=== PATIENT | female | born 1990 | race Two or more races ===

== ENCOUNTER 2017-01-13 11:02 | Emergency (ER) | payer BC, OTHER ==
[2017-01-13 11:31] VITALS: BP 115/52
--- NOTE | 2017-01-13 12:36 | UC ---
UC General HPI - HPI Summary HPI Summary: FIVE DAYS OF DIARRHEA, ABDOMINAL CRAMPING AND LOW GRADE FEVER. HAD VOMITING EPISODES ON FIRST DAY OF ILLNESS, WHICH RESOLVED. BUT DIARRHEA WILL NOT GO AWAY. WAS WATERY STOOL, NOW JUST LOOSE STOOL. - History of Current Complaint Chief Complaint: UCGI Stated Complaint: DIARRHEA Time Seen by Provider: 01/13/17 11:57 Hx Obtained From: Patient Onset/Duration: Gradual Onset, Lasting Days, Still Present Timing: Intermittent Episodes Lasting: Onset Severity: Moderate Current Severity: Mild Pain Intensity: 2 Associated Signs & Symptoms: Positive: Diarrhea, Fever - MILD, Nausea - RESOLVED , Vomiting - RESOLVED. Negative: Abdominal Pain, Back Pain, Chest Pain, Dizziness, Headache, Immunocompromised, Melena, SOB, Weakness - Allergy/Home Medications Allergies/Adverse Reactions: Allergies Allergy/AdvReac Type Severity Reaction Status Date / Time No Known Allergies Allergy Verified 01/13/17 11:25 Home Medications: Home Medications Multiple Vitamins W/ Minerals [Airborne] 01/13/17 [History] PMH/Surg Hx/FS Hx/Imm Hx Previously Healthy: Yes Endocrine History Of: Denies: Diabetes, Thyroid Disease Cardiovascular History Of: Denies: Cardiac Disorders, Hypertension Respiratory History Of: Denies: COPD, Asthma GI/ History Of: Denies: Ulcer - Surgical History Surgical History: None - Family History Known Family History: Positive: Other - BOYFRIEND ALSO HAS DIARRHEA - Social History Occupation: Employed Full-time, Student Lives: With Family Alcohol Use: Weekly Substance Use Type: None Smoking Status (MU): Never Smoked Tobacco Review of Systems Constitutional: Fever, Chills Skin: Negative Eyes: Negative ENT: Negative Respiratory: Negative Gastrointestinal: Vomiting - RESOLVED, Diarrhea Genitourinary: Negative Motor: Negative Neurovascular: Negative Musculoskeletal: Negative Neurological: Negative Psychological: Negative All Other Systems Reviewed And Are Negative: Yes Physical Exam Triage Information Reviewed: Yes Appearance: No Pain Distress, Well-Nourished, Ill-Appearing - MILD, Thin Vital Signs: Initial Vital Signs Temp 99.3 F 01/13/17 11:27 Pulse 65 01/13/17 11:27 Resp 18 01/13/17 11:27 BP 115/52 01/13/17 11:27 Pulse Ox 100 01/13/17 11:27 Vital Signs Reviewed: Yes Eye Exam: Normal Eyes: Positive: Conjunctiva Clear ENT Exam: Normal ENT: Positive: Normal ENT inspection, Hearing grossly normal, Pharynx normal, TMs normal Dental Exam: Normal Neck exam: Normal Neck: Positive: Supple, Nontender, No Lymphadenopathy Respiratory Exam: Normal Respiratory: Positive: Chest non-tender, Lungs clear, Normal breath sounds, No respiratory distress, No accessory muscle use Cardiovascular Exam: Normal Cardiovascular: Positive: RRR, No Murmur, Pulses Normal, Brisk Capillary Refill Abdominal Exam: Normal Abdomen Description: Positive: Nontender, No Organomegaly, Soft. Negative: CVA Tenderness (R), CVA Tenderness (L) Musculoskeletal Exam: Normal Musculoskeletal: Positive: Strength Intact, ROM Intact Neurological Exam: Normal Psychological Exam: Normal Psychological: Positive: Normal Response To Family Skin Exam: Normal Course/Dx - Differential Dx - Multi-Symptom Differential Diagnoses: Urinary Tract Infection, Other - CDIFF, CAMPYLOBACTER JEJUNI, Provider Diagnoses: GASTROENTERITIS Discharge - Discharge Plan Condition: Stable Disposition: HOME Patient Education Materials: Acute Diarrhea (ED) Referrals: Non Staff,Doctor [Primary Care Provider] - Stephy Manzo MD [Medical Doctor] -
== END 2017-01-13 12:19 | disposition home or self-care (01) ==
LOC: UCEAST 11:02
DX: K52.9 Noninfective gastroenteritis and colitis, unspecified (principal)
CPT/HCPCS: 99211; G0463

== ENCOUNTER 2018-03-07 09:50 | Emergency (ER) | payer BC, OTHER ==
[2018-03-07] MEDS ORDERED: NS 0.9% 1000 ML* 1,000 ML IV ONE (10:19)
[2018-03-07 10:34] LABS: Hematocrit 36 % (35-47); Hemoglobin 12.1 g/dl (12.0-16.0); Mean Corpuscular HGB Conc 33 g/dl (31-36); Mean Corpuscular Hemoglobin 30 pg (27-31); Mean Corpuscular Volume 90 fL (80-97); Mean Platelet Volume 8.1 um3 (7.4-10.4); Platelet Count 296 10^3/ul (150-450); Red Blood Count 4.02 10^6/ul (4.0-5.4); Red Cell Distribution Width 13 % (10.5-15); White Blood Count 11.6 10^3/ul (3.5-10.8)
[2018-03-07 10:53] LABS: EGFR Non-African American 142.5 (>60)
[2018-03-07 11:59] LABS: Urine Appearance Cloudy; Urine Blood 1+ (Negative); Urine Color Yellow; Urine Ketones Negative (Negative); Urine Protein Negative (Negative); Urine Specific Gravity 1.002 (1.010-1.030); Urine Urobilinogen Negative (Negative)
[2018-03-07] MEDS ORDERED: Nitrofurantoin Macrocrystals* 100 MG CAP PO ONE (12:23)
[2018-03-07 13:13] VITALS: BP 112/67
--- NOTE | 2018-03-07 18:31 | ED ---
Jacek Guillory Angela, scribed for Gregorio Solano MD on 03/07/18 at 1028 . Palpitations / Dysrhythmia - HPI Summary HPI Summary: This pt is a 27 y/o female, (accompanied by ), currently 31 weeks , presenting to [facility] c/o palpitations today. Pt reports she was getting ready for work this morning when she suddenly felt palpitations at approximately 08:45 today. Palpitations are characterized as fast and states " it felt like my heart was going to come out of my chest." Pt notes she checked her apple watch and saw her heart rate was 180 bpm and this episode lasted for approximately 20 minutes. After 20 minutes her heart rate decreased to 100 bpm. Currently palpitations have resolved. Denies SOB, chest pain, dysuria, hematuria , vaginal bleeding, LE swelling. Denies tobacco or alcohol use. Pt denies recent long travel distance. Pt had toast this morning for breakfast. She states she has had anxiety attacks in the past and today's episode was not similar to these past attacks. Pt is due in May 06 and is having a boy. She reports her has been going well, denies any complaints. Her OBGyn is [facility]. Her PCP is Dr. Manzo. Denies any PMHx. No hx of blood clots. NKDA. Denies FHx of blood clots. - History of Current Complaint Chief Complaint: EDDysrhythmPalp Time Seen by Provider: 03/07/18 09:59 Hx Obtained From: Patient Onset/Duration: Lasting Minutes - 20, Resolved Timing: Constant Severity Initially: Moderate Severity Currently: None Character: Fast Aggravating: Nothing Alleviating: Nothing Associated Signs & Symptoms: Negative - Allergy/Home Medications Allergies/Adverse Reactions: Allergies Allergy/AdvReac Type Severity Reaction Status Date / Time No Known Allergies Allergy Verified 03/07/18 09:56 PMH/Surg Hx/FS Hx/Imm Hx Endocrine/Hematology History: Denies: Hx Diabetes, Hx Thyroid Disease Cardiovascular History: Denies: Hx Hypertension Respiratory History: Denies: Hx Asthma, Hx Chronic Obstructive Pulmonary Disease (COPD) GI History: Denies: Hx Ulcer Infectious Disease History: No Infectious Disease History: Denies: Hx Hepatitis, Hx Human Immunodeficiency Virus (HIV), History Other Infectious Disease, Traveled Outside the [place] in Last 30 Days - Family History Family History: No FHx of blood disorder. Mother: hyperthyroidism. - Social History Alcohol Use: Weekly Substance Use Type: Reports: None Smoking Status (MU): Never Smoked Tobacco Review of Systems Negative: Fever, Chills Negative: Erythema Negative: Sore Throat Positive: Palpitations. Negative: Chest Pain Negative: Shortness Of Breath, Cough Negative: Abdominal Pain, Vomiting, Nausea Negative: dysuria, hematuria Negative: Myalgia, Edema Negative: Rash Neurological: Other - NEG: dizziness All Other Systems Reviewed And Are Negative: Yes Physical Exam - Summary Physical Exam Summary: Constitutional: Well-developed, Well-nourished, Alert. (-) Distressed Skin: Warm, Dry HENT: Normocephalic; Atraumatic Eyes: Conjunctiva normal Neck: Musculoskeletal ROM normal neck. (-) JVD, (-) Stridor, (-) Tracheal deviation Cardio: Rhythm regular, rate normal, Heart sounds normal; Intact distal pulses; The pedal pulses are 2+ and symmetric. Radial pulses are 2+ and symmetric. (-) Murmur Pulmonary/Chest wall: Effort normal. (-) Respiratory distress, (-) Wheezes, (-) Rales Abd: Soft, (-) Tenderness, (-) Distension, (-) Guarding, (-) Rebound. Gravid abdomen. Musculoskeletal: (-) Edema Lymph: (-) Cervical adenopathy Neuro: Alert, Oriented x3 Psych: Mood and affect Normal Triage Information Reviewed: Yes Vital Signs On Initial Exam: Initial Vitals Temp Pulse Resp BP Pulse Ox 98.4 F 96 15 118/75 100 03/07/18 09:52 03/07/18 09:52 03/07/18 09:52 03/07/18 09:52 03/07/18 09:52 Vital Signs Reviewed: Yes Diagnostics - Vital Signs Vital Signs Temp Pulse Resp BP Pulse Ox 03/07/18 09:52 98.4 F 96 15 118/75 100 - Laboratory Lab Results: Lab Results 03/07/18 03/07/18 03/07/18 Range/Units 10:20 10:20 11:40 WBC 11.6 H (3.5-10.8) 10^3/ul RBC 4.02 (4.0-5.4) 10^6/ul Hgb 12.1 (12.0-16.0) g/dl Hct 36 (35-47) % MCV 90 (80-97) fL MCH 30 (27-31) pg MCHC 33 (31-36) g/dl RDW 13 (10.5-15) % Plt Count 296 (150-450) 10^3/ul MPV 8.1 (7.4-10.4) um3 Sodium 135 L (139-145) mmol/L Potassium 3.9 (3.5-5.0) mmol/L Chloride 104 (101-111) mmol/L Carbon Dioxide 26 (22-32) mmol/L Anion Gap 5 (2-11) mmol/L BUN 7 (6-24) mg/dL Creatinine 0.52 (0.51-0.95) mg/dL Est GFR ( Amer) 183.3 (>60) Est GFR (Non-Af Amer) 142.5 (>60) BUN/Creatinine Ratio 13.5 (8-20) Glucose 78 (70-100) mg/dL Calcium 9.3 (8.6-10.3) mg/dL Magnesium 2.0 (1.9-2.7) mg/dL Total Bilirubin 0.40 (0.2-1.0) mg/dL AST 14 (13-39) U/L ALT 12 (7-52) U/L Alkaline Phosphatase 123 H (34-104) U/L Total Protein 6.9 (6.4-8.9) g/dL Albumin 3.5 (3.2-5.2) g/dL Globulin 3.4 (2-4) g/dL Albumin/Globulin Ratio 1.0 (1-3) TSH 1.14 (0.34-5.60) mcIU/mL Free T4 0.68 (0.61-1.12) ng/dL Urine Color Yellow Urine Appearance Cloudy Urine pH 7.0 (5-9) Ur Specific [place] 1.002 L (1.010-1.030) Urine Protein Negative (Negative) Urine Ketones Negative (Negative) Urine Blood 1+ A (Negative) Urine Nitrate Negative (Negative) Urine Bilirubin Negative (Negative) Urine Urobilinogen Negative (Negative) Ur Leukocyte Esterase 3+ A (Negative) Urine WBC (Auto) 2+(11-20/hpf) A (Absent) Urine RBC (Auto) 3+(>10/hpf) A (Absent) Ur Squamous Epith Cells Present A (Absent) Urine Bacteria 3+ A (Absent) Urine Glucose Negative (Negative) Result Diagrams: 03/07/18 10:20 03/07/18 10:20 Lab Statement: Any lab studies that have been ordered have been reviewed, and results considered in the medical decision making process. - EKG 11:28 Cardiac Rate: NL - at 89 bpm EKG Rhythm: Sinus Rhythm EKG Interpretation: No change. NO STEMI. Re-Evaluation - Re-Evaluation First Eval Re-Evaluation Time: 12:37 Comment: I reviewed the results with the pt. She will be discharged home. Course/Dx - Course Assessment/Plan: Pt is a 27 y/o female, currently 31 weeks , who presents with palpitations today. Pt reports she was getting ready for work this morning when she suddenly felt palpitations at approximately 08:45 today. Palpitations are characterized as fast and states "it felt like my heart was going to come out of my chest." Pt notes she checked her apple watch and saw her heart rate was 180 bpm and this episode lasted for approximately 20 minutes. Test results shows WBC of 11.6. Urinalysis shows UTI. In the ED course the pt was given IV fluids, Macrodantin. OB RN reports heart rate is 131 bpm. Pt will be discharged home with follow up from her OB. She will be given a prescription for Macrodantin for UTI. Pt was given information on vagal maneuvers as well. T WAVE ABNORMALITIES ARE CHRONIC. PT UNDERSTANDS NEEDS TO F/ U WITH PCP REGARDING THIS - Diagnoses Provider Diagnoses: UTI (urinary tract infection) during , SVT (supraventricular tachycardia), Electrocardiogram showing T wave abnormalities Discharge - Sign-Out/Discharge Documenting (check all that apply): Discharge/Admit/Transfer - Discharge - Discharge Plan Condition: Stable Disposition: HOME Prescriptions: Nitrofurantoin Macrocrystals* [Macrodantin 100 mg*] 100 mg PO BID #10 cap Patient Education Materials: Supraventricular Tachycardia (ED), Valsalva Maneuver (ED), Urinary Tract Infection in (ED) Referrals: [facility] [Provider Group] (Address: [address], [place] [address] ) Additional Instructions: Follow up with your OB in 2-3 days. RETURN TO THE EMERGENCY DEPARTMENT FOR CHANGING OR WORSENING SYMPTOMS. - Billing Disposition and Condition Condition: STABLE Disposition: HOME The documentation as recorded by the Jacek sousa Angela accurately reflects the service I personally performed and the decisions made by me, Gregorio Solano MD.
== END 2018-03-07 13:12 | disposition home or self-care (01) ==
LOC: ED 09:50
DX: O23.43 Unspecified infection of urinary tract in pregnancy, third trimester (principal); I47.1 Supraventricular tachycardia; Z3A.31 31 weeks gestation of pregnancy
CPT/HCPCS: 36415; 80053; 81003; 81015; 83735; 84439; 84443; 85027; 87086; 93005; 99282; A9270-GY

== ENCOUNTER 2018-05-09 12:49 | Inpatient (IN) | payer BC, MEDICAID ==
[2018-05-09 13:55] LABS: ABS Basophils 0 10^3/ul (0-0.2); ABS Eosinophils 0.1 10^3/ul (0-0.6); ABS Lymphocytes 1.7 10^3/ul (1.0-4.8); ABS Monocytes 0.8 10^3/ul (0-0.8); ABS Neutrophils 8.7 10^3/ul (1.5-7.7); ABS Nucleated RBC 0 10^3/ul; Eosinophil % 0.5 % (0-6); Hematocrit 37 % (35-47); Hemoglobin 12.5 g/dl (12.0-16.0); Mean Corpuscular HGB Conc 33 g/dl (31-36); Mean Corpuscular Hemoglobin 29 pg (27-31); Mean Corpuscular Volume 87 fL (80-97); Mean Platelet Volume 8.6 um3 (7.4-10.4); Nucleated Red Blood Cells % 0; Platelet Count 300 10^3/ul (150-450); Red Blood Count 4.28 10^6/ul (4.00-5.40); Red Cell Distribution Width 14 % (10.5-15); White Blood Count 11.3 10^3/ul (3.5-10.8)
[2018-05-09] MEDS ORDERED: Terbutaline INJ* 1 MG/ML VIAL SUBCUT ONE (14:13)
[2018-05-09] MEDS ORDERED: Dinoprostone* 10 MG VAG.SUPP VAGINAL ONE (16:07)
--- NOTE | 2018-05-09 17:16 | HP ---
General Information - General Information Maternal Age: 28 Grav: 1 Para: 0 SAB: 0 IEA: 0 Estimated Due Date: 05/06/18 Determined By: Early Ultrasound Maternal Blood Type and Rh: B Positive - Results this Serology/RPR Result: Non-Reactive Rubella Result: Immune HBsAg Result: Negative HIV Result: Negative GBS Culture Result: Positive Past Medical History Delivery History: See Records - primiparous Pertinent Past Medical History: See Records - SVT, Raynoud's, scoliosis Pertinent Past Surgical History: None Pertinent Family History: See Records - hyperthyroidism - Antepartal Records Antepartal Records: Reviewed, Complicated by: - sudden episode SVT, unstable lie Review of Systems Constitutional: Comfortable CV Complaint: No Respiratory: Shortness of Breath: No Gastrointestinal: No Nausea/Vomiting, Normal Bowel Movement Genitourinary: No Dysuria, No Bleeding, No Leaking Fluid Musculoskeletal: No Complaint Neurological: No Headache, No Visual Changes Movement: Normal Exam Allergies/Adverse Reactions: Allergies No Known Allergies Allergy (Verified 03/07/18 09:56) T- 98.4, P-71, R-20, BP 113/74, O2-100% Lab Values - Entire Visit: Laboratory Tests 05/09/18 13:35 WBC 11.3 H RBC 4.28 Hgb 12.5 Hct 37 MCV 87 MCH 29 MCHC 33 RDW 14 Plt Count 300 MPV 8.6 Neut % (Auto) 76.8 Lymph % (Auto) 15.0 L [place] % (Auto) 7.3 H Eos % (Auto) 0.5 Baso % (Auto) 0.4 Absolute Neuts (auto) 8.7 H Absolute Lymphs (auto) 1.7 Absolute Monos (auto) 0.8 Absolute Eos (auto) 0.1 Absolute Basos (auto) 0 Absolute Nucleated RBC 0 Nucleated RBC % 0 - Measurements Height: 5 ft 7.5 in Weight: 79.379 kg Weight in lbs: 175.198141 Body Mass Index (BMI): 27.0 Pre- Weight: 61.235 kg Weight Gained This : 40 lbs and 0 ozs - Exam Breast: Breast Exam Deferred CVA: No CVA Tenderness Extremities: No Edema Heart: Normal Rhythm/Heart Sounds HEENT: No Significant Findings Lungs: Clear Bilaterally Rectal: Rectal Exam Deferred Reflexes: DTR 2+ Thyroid: No Thyromegaly - Abdominal Exam Abdomen Exam: Non-Tender, Fundal Height Consistent with Dates - Ultrasound/Biophysical Profile Ultrasound Status: Bedside Exam Ultrasound Findings: Was oblique on arrival, successful version occurred. Bedside sono done several times after version continue to show VTX position. Targeted Exam Findings See L&D Outpatient Visit Provider Note for Findings: N/A Estimated Weight: 7.5# Cervical Exam: Closed Effacement: Thick Station: -2 Presenting Part: Vertex Membrane Status: Intact Bleeding/Discharge: None EFM Findings - External Monitor Findings Baseline Heart Rate: 130 External Monitor Findings: Accelerations Present, No Pattern of Variable or Late Decelerations, Variability Moderate, Baseline Stable Contractions: Irregular, Mild, < 45 Seconds Assessment/Plan - Assessment 28 year old at 40 3/7 weeks gestation with unstable lie, currently vertex post ECF, not in labor, with no evidence of acidemia. - Obstetrical Risk Factors Obstetrical Risk Factors: GBS Positive - Plan Plan: Cervical Ripening - Date/Time of Admission Date of Admission: 05/09/18 Time of Admission: 14:15
[2018-05-09] MEDS ORDERED: Acetaminophen TAB* 325 MG PO ONE (20:16)
[2018-05-09] MEDS ORDERED: OBEPIDURAL* 250 ML EPIDURAL ONE (22:20)
[2018-05-09] MEDS ORDERED: fentaNYL* 50 MCG/ML 2 ML VIAL (100 MCG VIAL) ONE (22:21)
[2018-05-09] MEDS ORDERED: Penicillin G Potassium IV* 5,000,000 UNITS in NS 0.9% 100 ML* 100 ML IVPB ONE (22:22)
[2018-05-09] MEDS ORDERED: Penicillin G Potassium IV* 2,500,000 UNITS in NS 0.9% 100 ML* 100 ML IVPB SCH (23:00)
[2018-05-09] MEDS ORDERED: OBEPIDURAL* 250 ML EPIDURAL SCH (23:45)
[2018-05-09] MEDS ORDERED: Lidocaine 2% JELLY* 6 ML JELLY TOPICAL ONE (23:46)
[2018-05-09] MEDS ORDERED: Hetastarch 6% in NS* 200 ML IV PRN (23:51)
[2018-05-09] MEDS ORDERED: Phenylephrine IV* 40 MCG/ML 10 ML SYRINGE IV PUSH PRN ×2 (23:51)
[2018-05-09] MEDS ORDERED: Famotidine TAB* 20 MG PO PRN (23:51)
[2018-05-09] MEDS ORDERED: Sodium Citrate/Citric Acid* 15 ML UDC PO PRN (23:51)
[2018-05-09] MEDS ORDERED: EPHEDrine (Pressors)* 50 MG/ML VIAL IV PUSH PRN ×2 (23:51)
[2018-05-10] MEDS: Penicillin G Potassium IV* 2,500,000 UNITS in NS 0.9% 100 ML* 100 ML IVPB SCH ×2 (03:35→07:16)
[2018-05-10] MEDS ORDERED: Oxytocin in LR* 20 UNITS/1,000 ML BAG IVPB SCH ×2 (04:00→10:00)
--- NOTE | 2018-05-10 06:15 | OP ---
DATE OF OPERATION: 05/09/18 - ROOM #102 DATE OF : 89 SURGEON: Dr. Destiny Montoya. OIL FIELD ROUSTABOUT: Ashwini Zuleta with ultrasound. ANESTHESIA: None. PRE-OP DIAGNOSIS: Malpresentation at 40 weeks, back down transverse lie. POST-OP DIAGNOSIS: Malpresentation at 40 weeks, back down transverse lie, successful version. OPERATIVE PROCEDURE: External cephalic version under ultrasound guidance. IV FLUIDS: 1000 cc of crystalloid. URINE OUTPUT: Not recorded. FINDINGS: Revealed prior to external cephalic version back down transverse lie with head in maternal left, post successful cephalic version vertex. Reactive strip with some positive heart rate greater than 120 beats per minute throughout procedure. DESCRIPTION OF PROCEDURE: The patient was placed in Trendelenburg position. After receiving 0.25 mg of subcu terbutaline, approximately 15 minutes after this was given, an attempt was made at external cephalic version with ultrasound guidance. The first attempt, baby moved partially. On the second attempt, the baby was definitely vertex. There was a cord noted to be in front of the head after successful version and the plan was to reassess cord after the baby was settled into the pelvis in the vertex position. heart tones were 120 or greater throughout the procedure. Reactive NST was noted post successful external cephalic version. An addendum, one hour after procedure, confirmation of vertex presentation was confirmed and there was no evidence of cord in front of the head any longer and at this point, the patient will stay in -house with IV access and begin a cervical ripening with Cervidil. [id number]/[facility] #: [id number] [facility]
[2018-05-10] MEDS ORDERED: Glycerin ADULT SUPP PR PRN (09:22)
[2018-05-10] MEDS ORDERED: Varicella Virus Vaccine Live* 0.5 ML VIAL SUBCUT ONE (09:22)
[2018-05-10] MEDS ORDERED: Witch Hazel PAD* JAR TOPICAL PRN (09:22)
[2018-05-10] MEDS ORDERED: Acetaminophen TAB* 325 MG PO PRN (09:22)
[2018-05-10] MEDS ORDERED: Ammonia Inhalant* 1 EA AMP ONE (10:39)
--- NOTE | 2018-05-10 11:36 | PROCNOTE ---
[facility] OB: Delivery Note - Delivery A Date of : 05/10/18 Time of : 08:45 [place] Weight at : 7 lb 10 oz Score 1 Minute: 9 Score 5 Minutes: 9 Gestational Age in Weeks and Days at Delivery: 40 Weeks and 4 Days Delivery Method: Spontaneous Vaginal Labor: Induced Did Patient attempt ?: N/A, No Previous Amniotic Fluid: Meconium Estimated Blood Loss: 350 Anesthesia/Analgesia: CEI for Labor Delivered By: Marci Moreno - Nursery Level of Nursery: Regular/Bedside - Perineum Perineal Injury: Perineal Laceration, 2nd Degree Perineal Injury Comment: being repaired by LM. Perineal Repair: By Delivering Practioner - Events Delivery Events of Note: Pitocin During Labor, Supplemental O2 to Mother, Full Course of Antibiotics - Additional Delivery Notes Additional Delivery Notes: Pt admitted for second version and induction after baby returned to oblique/ breech after first version attempt. Cervidil and pitocin led to rapid progression to complete and pushing. Baby with persistent decels into 70s/80s with pushing, thick meconium in fluid. SCN, technical report writer, OB, off-going wharf laborer all attending delivery. LOL 3'50", pushed 35 min. Baby born OA, nuchal X1 unwrapped on perineum. Posterior arm around neck, shoulders followed easily with maternal effort. To maternal abdomen with spontaneous respirations and cry. Cord doubly clamped and cut by ANTONIO Verduzco once pulsations ceased. Placenta delivered with gentle cord traction @ 0850. Repair of perineal laceration with 3 -0 Rapide. Baby at breast to initiate . Mother and baby stable and well.
[2018-05-10] MEDS: Dibucaine 1% 28.35 GM TUBE PR PRN (12:09)
[2018-05-10] MEDS: Docusate CAP* 100 MG PO SCH ×2 (15:19→21:39)
[2018-05-10] MEDS: Ibuprofen TAB* 600 MG PO PRN ×2 (15:19→21:38)
[2018-05-11] MEDS: Ibuprofen TAB* 600 MG PO PRN ×3 (03:20→21:35)
[2018-05-11 06:04] LABS: ABS Basophils 0.1 10^3/ul (0-0.2); ABS Eosinophils 0.1 10^3/ul (0-0.6); ABS Lymphocytes 2.8 10^3/ul (1.0-4.8); ABS Monocytes 0.9 10^3/ul (0-0.8); ABS Neutrophils 10.5 10^3/ul (1.5-7.7); ABS Nucleated RBC 0 10^3/ul; Eosinophil % 0.6 % (0-6); Hematocrit 30 % (35-47); Hemoglobin 10.1 g/dl (12.0-16.0); Lymphocyte % 19.6 % (25-47); Mean Corpuscular HGB Conc 33 g/dl (31-36); Mean Corpuscular Hemoglobin 29 pg (27-31); Mean Corpuscular Volume 88 fL (80-97); Mean Platelet Volume 8.3 um3 (7.4-10.4); Nucleated Red Blood Cells % 0; Platelet Count 255 10^3/ul (150-450); Red Blood Count 3.42 10^6/ul (4.00-5.40); Red Cell Distribution Width 14 % (10.5-15); White Blood Count 14.4 10^3/ul (3.5-10.8)
[2018-05-11] MEDS ORDERED: Ferrous Gluconate TAB* 324 MG TAB PO SCH (09:00)
[2018-05-11] MEDS: Docusate CAP* 100 MG PO SCH ×3 (09:05→21:35)
[2018-05-11] MEDS: Dibucaine 1% 28.35 GM TUBE PR PRN (13:26)
--- NOTE | 2018-05-11 20:18 | PTEDU ---
Patient Name: BARBARA OSBORNE DYLONBARBARA selected video: Follow Me Mum: [facility] Successful to view on 018 at 8:17:55 PM [id number]
--- NOTE | 2018-05-11 20:43 | PTEDU ---
Patient Name: BARBARA OSBORNE DYLON BARBARA selected video: Never Ever Shake a Baby to view on 05/11/2018 at 8:42:00 PM from [email or web address] [id number]
[2018-05-12] MEDS: Ibuprofen TAB* 600 MG PO PRN ×2 (04:19→10:37)
[2018-05-12 08:18] VITALS: BP 112/67
[2018-05-12] MEDS: Docusate CAP* 100 MG PO SCH (08:58)
== END 2018-05-12 11:25 | disposition home or self-care (01) | DRG 560 ==
LOC: MCHOBOUT 12:49 → MCHOB 14:12
PROVIDERS: ADMIT Midwife; ATTEND Midwife
PROC: 10E0XZZ Delivery of Products of Conception, External Approach (ICD-10-PCS; principal; 2018-05-10)
PROC: 3E033VJ Introduction of Other Hormone into Peripheral Vein, Percutaneous Approach (ICD-10-PCS; 2018-05-10)
PROC: 10907ZC Drainage of Amniotic Fluid, Therapeutic from Products of Conception, Via Natural or Artificial Opening (ICD-10-PCS; 2018-05-10)
PROC: 0KQM0ZZ Repair Perineum Muscle, Open Approach (ICD-10-PCS; 2018-05-10)
PROC: 10S0XZZ Reposition Products of Conception, External Approach (ICD-10-PCS; 2018-05-10)
DX: O48.0 Post-term pregnancy (principal); O32.2XX0 Maternal care for transverse and oblique lie, not applicable or unspecified; O69.81X0 Labor and delivery complicated by cord around neck, without compression, not applicable or unspecified; O77.0 Labor and delivery complicated by meconium in amniotic fluid; O70.1 Second degree perineal laceration during delivery; I65.8 Occlusion and stenosis of other precerebral arteries; O99.824 Streptococcus B carrier state complicating childbirth; Z3A.40 40 weeks gestation of pregnancy; Z37.0 Single live birth
CPT/HCPCS: 36415; 59412; 85025; A9270-GY; J2540; J3010; J3105

== ENCOUNTER 2021-11-28 09:49 | Observation (INO) ==
[2021-11-28] MEDS ORDERED: NS 0.9% 1000 ml BAG 1,000 ML IV ONE (11:45)
[2021-11-28] MEDS ORDERED: Ondansetron 4 mg VIAL 2 MG/ML 2 ml VIAL IV ONE (11:45)
[2021-11-28 11:56] LABS: ABS Lymphocytes 0.6 10^3/ul (1.0-4.8); ABS Monocytes 0.5 10^3/ul (0-0.8); ABS Neutrophils 16.9 10^3/ul (1.5-7.7); Hematocrit 36 % (35-47); Hemoglobin 12.1 g/dL (12.0-16.0); Lymphocyte % 3.4 %; Mean Corpuscular HGB Conc 34 g/dL (31-36); Mean Corpuscular Hemoglobin 30 pg (27-31); Mean Corpuscular Volume 89 fL (80-97); Mean Platelet Volume 7.8 fL (7.4-10.4); Platelet Count 315 10^3/uL (150-450); Red Blood Count 4.03 10^6 /uL (3.70-4.87); Red Cell Distribution Width 15 % (10-15)
[2021-11-28 12:12] LABS: Rapid COVID-19 Molecular Undetected (Undetected)
[2021-11-28 12:58] LABS: Albumin 4.4 g/dL (3.2-5.2); Albumin/Globulin Ratio 1.3 (1-3); Calcium 9.6 mg/dL (8.6-10.3); Globulin 3.4 g/dL (2-4); Potassium 3.6 mmol/L (3.5-5.0); Total Bilirubin 0.5 mg/dL (0.2-1.0); Total Protein 7.8 g/dL (6.4-8.9); eGFR CKD-EPI 131.3 (>60)
[2021-11-28 14:46] LABS: Urine Appearance Cloudy; Urine Bilirubin Negative (Negative); Urine Blood Negative (Negative); Urine Color Yellow; Urine Glucose 1+(50 mg/dL) (Negative); Urine Ketones 1+ (Negative); Urine Nitrite Negative (Negative); Urine Protein 1+(30 mg/dL) (Negative); Urine Specific Gravity 1.017 (1.002-1.030); Urine Urobilinogen Negative (Negative)
[2021-11-28 14:57] LABS: Urine Bacteria Absent (Absent); Urine Red Blood Cell Absent (Absent); Urine Squamous Epithelial Cell Present (Absent); Urine White Blood Cell Trace(0-5/hpf) (Absent)
[2021-11-28] MEDS ORDERED: Bupivacaine 0.25% SDV 30 ML ONE ×2 (16:15→17:35)
[2021-11-28] MEDS ORDERED: Piperacillin/Tazobac ADVAN 3.375 GM in NS 0.9% 100 ml BAG 100 ML IV ONE (16:29)
[2021-11-28] MEDS ORDERED: Sodium Citrate/Citric Acid LIQ 15 ML UDC PO ONE (16:33)
[2021-11-28] MEDS ORDERED: fentaNYL 250 mcg/5 ml 50 MCG/ML 5 ml VIAL (250 MCG) ONE (16:40)
[2021-11-28] MEDS ORDERED: Succinylcholine 200 mg VIAL 20 mg/ml 10 ml VIAL (200 mg) ONE (16:40)
[2021-11-28] MEDS ORDERED: Dexamethasone IV 4 MG/ML VIAL 1 ml VIAL ONE (16:40)
[2021-11-28] MEDS ORDERED: Ondansetron 4 mg VIAL 2 MG/ML 2 ml VIAL ONE (16:40)
[2021-11-28] MEDS ORDERED: Lidocaine 2% PF 5 ML VIAL ONE (16:40)
[2021-11-28] MEDS ORDERED: Rocuronium 50 mg VIAL 10 mg/ml 5 ml VIAL (50 mg) ONE (16:41)
[2021-11-28] MEDS ORDERED: Sodium Citrate/Citric Acid LIQ 15 ML UDC ONE (16:47)
[2021-11-28] MEDS ORDERED: Lactated Ringers 1000 ml BAG 1,000 ML IV SCH ×2 (17:00→19:24)
[2021-11-28] MEDS ORDERED: Piperacillin/Tazobac 3.375 GM BAG ONE ×2 (17:02→17:05)
[2021-11-28] MEDS ORDERED: Naloxone 0.4 mg VIAL 0.4 mg/ml 1 ml VIAL IV PRN (17:52)
[2021-11-28] MEDS ORDERED: fentaNYL 100 mcg/2 ml 50 MCG/ML VIAL IV PRN (17:52)
[2021-11-28] MEDS ORDERED: DiMENhydriNATE IV 50 mg/ml 1 ml VIAL IV PUSH PRN (17:52)
[2021-11-28] MEDS ORDERED: Phenylephrine 40 mcg/mL 10mL (400mcg) SYRINGE ONE (17:53)
[2021-11-28] MEDS ORDERED: Acetaminophen IV 1 GM/100ML 100 ML IV ONE (18:04)
[2021-11-28] MEDS ORDERED: DiMENhydriNATE IV 50 mg/ml 1 ml VIAL ONE (19:01)
[2021-11-28] MEDS ORDERED: HYDROmorphone 0.5 MG/0.5 ML SYRINGE IV SLOW PU PRN (19:14)
[2021-11-28] MEDS ORDERED: Ondansetron 4 mg VIAL 2 MG/ML 2 ml VIAL IV PRN (19:24)
[2021-11-28] MEDS ORDERED: fentaNYL 100 mcg/2 ml 50 MCG/ML VIAL ONE (20:04)
[2021-11-28] MEDS: Lactated Ringers 1000 ml BAG 1,000 ML IV SCH (20:58)
[2021-11-29] MEDS: Lactated Ringers 1000 ml BAG 1,000 ML IV SCH (04:34)
[2021-11-29 11:18] VITALS: BP 130/81
== END 2021-11-29 11:30 | disposition home or self-care (01) ==
LOC: SSU 09:49 → ED 09:49 → SSU 16:49
PROVIDERS: ADMIT Surgery; ATTEND Surgery

== ENCOUNTER 2022-06-22 17:24 | Inpatient (IN) ==
[2022-06-22] MEDS ORDERED: Lactated Ringers 1000 ml BAG 1,000 ML IV ONE (19:36)
[2022-06-22] MEDS ORDERED: Buffered Lidocaine 1% SYRIN 1 ml INTRADERM ONE (19:36)
[2022-06-22] MEDS ORDERED: Terbutaline INJ 1 MG/ML 1 ml VIAL SUBCUT ONE (19:38)
[2022-06-22] MEDS ORDERED: Lactated Ringers 1000 ml BAG 1,000 ML IV SCH (20:00)
[2022-06-22 20:14] LABS: ABS Basophils 0.1 10^3/ul (0-0.2); ABS Eosinophils 0.1 10^3/ul (0-0.6); ABS Lymphocytes 2.1 10^3/ul (1.0-4.8); ABS Monocytes 0.9 10^3/ul (0-0.8); ABS Neutrophils 8.8 10^3/ul (1.5-7.7); Eosinophil % 0.5 %; Hematocrit 36 % (35-47); Hemoglobin 11.4 g/dL (12.0-16.0); Lymphocyte % 17.6 %; Mean Corpuscular HGB Conc 32 g/dL (31-36); Mean Corpuscular Hemoglobin 28 pg (27-31); Mean Corpuscular Volume 87 fL (80-97); Mean Platelet Volume 8.5 fL (7.4-10.4); Nucleated Red Blood Cells % 0.1; Platelet Count 300 10^3/uL (150-450); Red Blood Count 4.13 10^6 /uL (3.70-4.87); Red Cell Distribution Width 15 % (10-15); White Blood Count 11.9 10^3/uL (3.5-10.8)
[2022-06-22] MEDS ORDERED: Dinoprostone 10 MG VAG.SUPP VAGINAL ONE (22:07)
[2022-06-23] MEDS ORDERED: Promethazine INJ(RESTRICTED) 25 MG/ML 1 ml VIAL IV PRN (01:38)
[2022-06-23] MEDS ORDERED: Nalbuphine 10 MG/ML 1 ML VIAL IV PRN (01:38)
[2022-06-23] MEDS ORDERED: OBEPIDURAL (200 ML) 200 ML EPIDURAL ONE (01:58)
[2022-06-23] MEDS ORDERED: Lidocaine 1.5% EPI 1:200,000 30 ML SDV ONE ×2 (01:58→02:10)
[2022-06-23] MEDS ORDERED: Bupivacaine 0.25% SDV PF 10 ML VIAL INJ ONE (02:10)
[2022-06-23] MEDS ORDERED: fentaNYL 100 mcg/2 ml 50 MCG/ML VIAL ONE (02:10)
[2022-06-23] MEDS ORDERED: Phenylephrine 40 mcg/mL 10mL (400mcg) SYRINGE ONE (02:33)
[2022-06-23] MEDS ORDERED: Lactated Ringers 1000 ml BAG 1,000 ML IV ONE (03:08)
[2022-06-23] MEDS ORDERED: Sodium Citrate/Citric Acid LIQ 15 ML UDC PO PRN (03:08)
[2022-06-23] MEDS ORDERED: OBEPIDURAL (200 ML) 200 ML EPIDURAL SCH (03:08)
[2022-06-23] MEDS ORDERED: Lactated Ringers 1000 ml BAG 1,000 ML IV SCH ×2 (04:00→18:00)
[2022-06-23 05:44] LABS: Urine Appearance Clear; Urine Bilirubin Negative (Negative); Urine Blood Trace (Intact) (Negative); Urine Color Yellow; Urine Glucose Negative (Negative); Urine Ketones Negative (Negative); Urine Nitrite Negative (Negative); Urine Protein Negative (Negative); Urine Specific Gravity <=1.005 (1.005-1.030); Urine Urobilinogen 0.2 (Negative) (Negative)
[2022-06-23 05:58] LABS: Urine Bacteria 1+ (Absent); Urine Red Blood Cell Absent (Absent); Urine White Blood Cell Absent (Absent)
[2022-06-23 06:05] LABS: Urine Benzodiazepine Screen None Detected (None Detect); Urine Cannabinoids Screen None Detected (None Detect); Urine Opiates Screen None Detected (None Detect)
[2022-06-23] MEDS ORDERED: Mineral Oil Sterile, TOPICAL 25 ML BTL ONE (12:58)
[2022-06-23] MEDS ORDERED: Terbutaline INJ 1 MG/ML 1 ml VIAL ONE (13:03)
[2022-06-23] MEDS ORDERED: Terbutaline INJ 1 MG/ML 1 ml VIAL SUBCUT ONE (13:39)
[2022-06-23] MEDS ORDERED: Oxytocin in LR 20,000 MILLI.UNIT/1,000 ML BAG IV SCH ×2 (13:45→17:30)
[2022-06-23] MEDS ORDERED: Dibucaine 1% OINT 28.35 GM TUBE PR PRN (17:16)
[2022-06-23] MEDS ORDERED: Glycerin ADULT 2.4 gm SUPP PR PRN (17:16)
[2022-06-23] MEDS ORDERED: Witch Hazel PAD JAR TOPICAL PRN (17:16)
[2022-06-24 06:54] LABS: ABS Monocytes 0.7 10^3/ul (0-0.8); ABS Neutrophils 8.5 10^3/ul (1.5-7.7); Eosinophil % 0.3 %; Hematocrit 33 % (35-47); Hemoglobin 10.9 g/dL (12.0-16.0); Lymphocyte % 17.8 %; Mean Corpuscular HGB Conc 33 g/dL (31-36); Mean Corpuscular Hemoglobin 29 pg (27-31); Mean Corpuscular Volume 87 fL (80-97); Mean Platelet Volume 8.4 fL (7.4-10.4); Platelet Count 264 10^3/uL (150-450); Red Blood Count 3.79 10^6 /uL (3.70-4.87); Red Cell Distribution Width 15 % (10-15); White Blood Count 11.3 10^3/uL (3.5-10.8)
[2022-06-24 11:42] VITALS: BP 102/60
[2022-06-24] MEDS ORDERED: Varicella Virus Vaccine Live 0.5 ML VIAL SUBCUT ONE (12:12)
== END 2022-06-24 17:30 | disposition home or self-care (01) | DRG 807 ==
LOC: MCHOBOUT 17:24 → MCHOB 19:08
PROVIDERS: ADMIT Midwife; ATTEND Midwife